=== PATIENT | female | born 1990 ===

== ENCOUNTER 2017-09-13 09:13 | Emergency (ER) | payer BC, MEDICAID ==
--- NOTE | 2017-09-13 09:47 | UC ---
Skin Complaint HPI - HPI Summary HPI Summary: Pt is a 26 y/o F presents to c/o large inflamed areas on back of both thighs. She was traveling on buses all day 2 days ago and woke up yesterday morning with pain of the inflammation. Describes the pain as aching and burning per nurse's report. When they first appeared they looked like small bug bites, and then they started to swell and got very large. She is not sure where they came from and has not found any ticks on herself. Notes that the inflamed areas are hard to the touch. Denies fevers, chills, and Hx of MRSA. Symptoms unchanged by Ibuprofen. - History of Current Complaint Chief Complaint: [facility] Time Seen by Provider: 09/13/17 09:33 Stated Complaint: SKIN ISSUE Hx Obtained From: Patient, Family/Wardrobe Consultant, Other: - Nurse's report Hx Last Menstrual Period: 08/11/17 Onset/Duration: Lasting Days, Still Present Current Severity: Moderate Pain Intensity: 5 Pain Scale Used: 0-10 Numeric Associated Signs & Symptoms: Negative: Fever, Chills - Allergy/Home Medications Allergies/Adverse Reactions: Allergies Allergy/AdvReac Type Severity Reaction Status Date / Time No Known Allergies Allergy Verified 09/13/17 09:30 Review of Systems Constitutional: Fever - NEGATIVE: Fever, Chills - NEGATIVE: Chills Skin: Other - Inflammation on right and left thighs All Other Systems Reviewed And Are Negative: Yes PMH/Surg Hx/FS Hx/Imm Hx GI/ History: Other - UTI Other GI/ History: . Other History Of: Negative For: Anticoagulant Therapy - Surgical History Surgical History: None Surgery Procedure, Year, and Place: denies - Family History Known Family History: Negative: Cardiac Disease, Hypertension, Diabetes - Social History Alcohol Use: Weekly Substance Use Type: None Smoking Status (MU): Never Smoked Tobacco Physical Exam - Summary Physical Exam Summary: General: well-appearing, no pain distress Skin: left posterior thigh has 10 cm diameter erythematous raised area with no obvious skin break, right posterior thigh has 3 cm diameter erythematous raised area with no obvious skin break, warm, color reflects adequate perfusion, dry Head: normal Eyes: EOMI, HAMLET ENT: normal Neck: supple, nontender Respiratory: CTA, breath sounds present Cardiovascular: RRR Abdomen: soft, nontender Bowel: present Musculoskeletal: normal, strength/ROM intact Neurological: sensory/motor intact, A&O x3 Psychological: affect/mood appropriate Triage Information Reviewed: Yes Vital Signs: Initial Vital Signs Temp 98.4 F 09/13/17 09:27 Pulse 81 09/13/17 09:27 Resp 17 09/13/17 09:27 BP 91/55 09/13/17 09:27 Pulse Ox 100 09/13/17 09:27 Course/Dx - Course Course Of Treatment: CONTACT DERMATITIS VERSES CELLULITIS. RX KEFLEX, USE OTC ANTIHISTAMINES. F/U PMD; RECHECK SOONER IF WORSE. - Diagnoses Provider Diagnoses: DERMATITIS BILATERAL POSTERIOR THIGHS Discharge - Sign-Out/Discharge Documenting (check all that apply): Patient Departure - Discharge Plan Condition: Stable Disposition: HOME Prescriptions: Cephalexin CAP* [Keflex CAP*] 500 mg PO QID #40 cap Patient Education Materials: Dermatitis (ED) Referrals: [facility] [Outside] Additional Instructions: FOLLOW UP WITH YOUR DOCTOR IF NOT COMPLETELY IMPROVED. TAKE OVER THE COUNTER BENADRYL AND/OR AN ANTIHISTAMINE SUCH LORATADINE. GET RECHECKED FOR ANY WORSENING OF YOUR CONDITION; FEVER, YOU FEEL ILL OR QUESTIONS OR CONCERNS. - Billing Disposition and Condition Condition: STABLE Disposition: Home
== END 2017-09-13 09:55 | disposition home or self-care (01) ==
LOC: UCEAST 09:13
DX: L30.9 Dermatitis, unspecified (principal)
CPT/HCPCS: 99202; G0463